=== PATIENT | male | born 1945 | race Caucasian/White ===

== ENCOUNTER 2020-09-26 14:26 | Emergency (ER) | payer MEDICARE ==
[2020-09-26 14:47] VITALS: TEMP 98.3
--- NOTE | 2020-09-26 15:23 | ED ---
General Adult HPI - General Chief complaint: Weakness Stated complaint: Fall Time Seen by Provider: 09/26/20 15:02 Source: patient, family Mode of arrival: wheelchair Limitations: no limitations - History of Present Illness Initial comments: This is a 74-year-old male with a history of diabetes and peripheral neuropathy who presents emergency department for frequent falls over the last couple of weeks. The patient states that he was diagnosed with coated on September 14. The patient was primarily asymptomatic and did not require hospitalization. He states that since that time he is noticed that he's had frequent falls where he feels like his right leg is giving out. He had another episode this morning where he got up out of a chair and temperature to walk however the right leg didn't seem like he wanted to move and he collapsed down onto his right knee. Patient states that he did not lose consciousness and had no lightheadedness or syncope. The patient states that he did not hit his head. He states he was able to get up after the fall however did have some knee pain afterwards. The patient does admit to having diabetes that has been poorly controlled over the last couple of weeks however states that he has got this under control recently. The patient denies any upper extremity weakness. He states that his lower extremities feel back to normal at this time and he has no weakness. He states he does have bilateral total numbness which is consistent with his peripheral neuropathy and unchanged. The patient states that he has no facial droop. No numbness in the face. No difficult or speech or swallowing. The patient denies any chest pain or shortness of breath. No nausea or vomiting. He states that he came in because of the frequent falls and just wanted to get evaluated to make sure that there is not something else going on. Patient denies any other acute complaints currently. - Related Data Home Medications Medication Instructions Recorded Confirmed Gabapentin 300 mg PO DAILY PRN 09/26/20 09/26/20 Allergies Allergy/AdvReac Type Severity Reaction Status Date / Time No Known Allergies Allergy Verified 09/26/20 16:22 Review of Systems ROS Statement: Those systems with pertinent positive or pertinent negative responses have been documented in the HPI. ROS Other: All systems not noted in ROS Statement are negative. Past Medical History Past Medical History: Diabetes Mellitus Additional Past Medical History / Comment(s): neuropathy,glaucoma History of Any Multi-Drug Resistant Organisms: None Reported Past Surgical History: No Surgical Hx Reported Past Psychological History: No Psychological Hx Reported Smoking Status: Former smoker Past Alcohol Use History: None Reported Past Drug Use History: None Reported General Exam - General Exam Comments Initial Comments: Constitutional: Awake alert Appears comfortable Head: Normocephalic atraumatic Eyes: no conjunctival injection No scleral icterus EOMI, pupils are 3 mm and reactive bilaterally, no disconjugate gaze Neck: No JVD Supple, no midline tenderness Heart: Regular rate rhythm normal S1-S2 no murmurs Lungs: Clear to auscultation bilaterally No wheezing No rales Abdomen: Soft nondistended nontender Extremities: Non edematous DP pulses intact Radial pulses intact Neuro: A&Ox3, patient has cranial nerves II through XII that are grossly intact, 5 out of 5 strength in upper and lower extremities bilaterally, no ataxia with finger-nose or heel to trivedi testing. The patient does report tingling to the toes bilaterally however no numbness proximally. The patient has 5 out of 5 strength with plantar flexion and dorsiflexion, 2 out of 4 patellar reflexes however do seem slightly diminished No focal neurologic deficits Psych: Appropriate mood and affect Limitations: no limitations Course Vital Signs 09/26/20 09/26/20 14:42 17:25 Temperature 98.3 F Pulse Rate 91 90 Respiratory 20 18 Rate Blood Pressure 107/75 124/78 O2 Sat by Pulse 99 96 Oximetry EKG Findings - EKG Comments: EKG Findings:: EKG interpreted at 1544 showing normal sinus rhythm with a rate of 96. There is no abnormal ST segment changes or T-wave inversions. The patient does have a right bundle-branch block. QTC is 510. Other intervals appear normal. There is no ectopy. Medical Decision Making - Medical Decision Making This is a 74-year-old male who presents emergency department for a fall today and frequent falls over the last few weeks. Patient was evaluated and had no focal neurologic findings on examination. He otherwise had completely resolved symptoms when he come emergency department. The patient was able to get up and ambulate at bedside without any assistance. Blood work was obtained and unremarkable. He did have a mild elevated potassium however I believe this is from hemolysis. The patient also had a UA performed that was unremarkable. CT of the head did not show any acute abnormalities. X-ray of the knee and chest also did not reveal any acute abdominal disease. Patient felt well wanted to go home. At this time since the patient is ambulatory and without any focal we akness of bleeding go home and follow-up is with his primary doctor. He can return emergency Department if he has worsening or changing symptoms. All questions were answered. - Lab Data Result diagrams: 09/26/20 15:40 09/26/20 15:40 Lab Results 09/26/20 09/26/20 09/26/20 Range/Units 15:40 15:40 15:40 WBC 10.7 H (3.8-10.6) k/uL RBC 5.56 (4.30-5.90) m/uL Hgb 17.1 (13.0-17.5) gm/dL Hct 51.6 (39.0-53.0) % MCV 92.8 (80.0-100.0) fL MCH 30.8 (25.0-35.0) pg MCHC 33.2 (31.0-37.0) g/dL RDW 13.1 (11.5-15.5) % Plt Count 214 (150-450) k/uL MPV 7.5 Neutrophils % 74 % Lymphocytes % 16 % Monocytes % 7 % Eosinophils % 1 % Basophils % 1 % Neutrophils # 7.8 H (1.3-7.7) k/uL Lymphocytes # 1.7 (1.0-4.8) k/uL Monocytes # 0.7 (0-1.0) k/uL Eosinophils # 0.1 (0-0.7) k/uL Basophils # 0.1 (0-0.2) k/uL PT 10.4 (9.0-12.0) sec INR 1.0 (<1.2) APTT 25.3 (22.0-30.0) sec Sodium 135 L (137-145) mmol/L Potassium 5.8 H (3.5-5.1) mmol/L Chloride 106 (98-107) mmol/L Carbon Dioxide 22 (22-30) mmol/L Anion Gap 7 mmol/L BUN 25 H (9-20) mg/dL Creatinine 0.99 (0.66-1.25) mg/dL Est GFR (CKD-EPI)AfAm 87 (>60 ml/min/1.73 sqM) Est GFR (CKD-EPI)NonAf 75 (>60 ml/min/1.73 sqM) Glucose 142 H (74-99) mg/dL Calcium 8.7 (8.4-10.2) mg/dL Magnesium 2.6 H (1.6-2.3) mg/dL Total Bilirubin 1.0 (0.2-1.3) mg/dL AST 53 (17-59) U/L ALT 66 H (4-49) U/L Alkaline Phosphatase 62 (38-126) U/L Total Protein 7.0 (6.3-8.2) g/dL Albumin 3.9 (3.5-5.0) g/dL Urine Color Urine Appearance (Clear) Urine pH (5.0-8.0) Ur Specific [place] (1.001-1.035) Urine Protein (Negative) Urine Glucose (UA) (Negative) Urine Ketones (Negative) Urine Blood (Negative) Urine Nitrite (Negative) Urine Bilirubin (Negative) Urine Urobilinogen (<2.0) mg/dL Ur Leukocyte Esterase (Negative) 09/26/20 Range/Units 15:46 WBC (3.8-10.6) k/uL RBC (4.30-5.90) m/uL Hgb (13.0-17.5) gm/dL Hct (39.0-53.0) % MCV (80.0-100.0) fL MCH (25.0-35.0) pg MCHC (31.0-37.0) g/dL RDW (11.5-15.5) % Plt Count (150-450) k/uL MPV Neutrophils % % Lymphocytes % % Monocytes % % Eosinophils % % Basophils % % Neutrophils # (1.3-7.7) k/uL Lymphocytes # (1.0-4.8) k/uL Monocytes # (0-1.0) k/uL Eosinophils # (0-0.7) k/uL Basophils # (0-0.2) k/uL PT (9.0-12.0) sec INR (<1.2) APTT (22.0-30.0) sec Sodium (137-145) mmol/L Potassium (3.5-5.1) mmol/L Chloride (98-107) mmol/L Carbon Dioxide (22-30) mmol/L Anion Gap mmol/L BUN (9-20) mg/dL Creatinine (0.66-1.25) mg/dL Est GFR (CKD-EPI)AfAm (>60 ml/min/1.73 sqM) Est GFR (CKD-EPI)NonAf (>60 ml/min/1.73 sqM) Glucose (74-99) mg/dL Calcium (8.4-10.2) mg/dL Magnesium (1.6-2.3) mg/dL Total Bilirubin (0.2-1.3) mg/dL AST (17-59) U/L ALT (4-49) U/L Alkaline Phosphatase (38-126) U/L Total Protein (6.3-8.2) g/dL Albumin (3.5-5.0) g/dL Urine Color Yellow Urine Appearance Clear (Clear) Urine pH 5.5 (5.0-8.0) Ur Specific [place] 1.017 (1.001-1.035) Urine Protein Negative (Negative) Urine Glucose (UA) Negative (Negative) Urine Ketones 1+ H (Negative) Urine Blood Negative (Negative) Urine Nitrite Negative (Negative) Urine Bilirubin Negative (Negative) Urine Urobilinogen <2.0 (<2.0) mg/dL Ur Leukocyte Esterase Negative (Negative) Disposition Clinical Impression: Fall Disposition: HOME SELF-CARE Condition: Stable Instructions (If sedation given, give patient instructions): Fall Prevention for Older Adults (ED) Is patient prescribed a controlled substance at d/c from ED?: No Referrals: Glen Russo MD [Primary Care Provider] - 1-2 days
[2020-09-26 15:50] LABS: Basophils # (A) 0.1 k/uL (0-0.2); Basophils % (A) 1 %; Eosinophils # (A) 0.1 k/uL (0-0.7); Eosinophils % (A) 1 %; HCT 51.6 % (39.0-53.0); HGB 17.1 gm/dL (13.0-17.5); Lymphocytes # (A) 1.7 k/uL (1.0-4.8); Lymphocytes % (A) 16 %; MCH 30.8 pg (25.0-35.0); MCHC 33.2 g/dL (31.0-37.0); MCV 92.8 fL (80.0-100.0); Mean Platelet Volume 7.5; Monocytes # (A) 0.7 k/uL (0-1.0); Monocytes % (A) 7 %; Neutrophils # (A) 7.8 k/uL (1.3-7.7); Neutrophils % (A) 74 %; Platelet Count 214 k/uL (150-450); RBC 5.56 m/uL (4.30-5.90); RDW 13.1 % (11.5-15.5); WBC 10.7 k/uL (3.8-10.6)
--- NOTE | 2020-09-26 15:58 | CT ---
EXAMINATION TYPE: CT brain wo con DATE OF EXAM: 09/26/2020 COMPARISON: None HISTORY: c/o loss of balance, multiple recent falls CT DLP: 1147.4 mGycm Automated exposure control for dose reduction was used. There is cerebral cortical atrophy. There is no mass effect nor midline shift. There is no sign of in tracranial hemorrhage. There is some patchy hypodensity in the periventricular white matter. Calvariu m is intact. IMPRESSION: Cerebral atrophy and mild chronic small vessel ischemia. No acute intracranial abnormality.
--- NOTE | 2020-09-26 16:09 | XR ---
EXAMINATION TYPE: XR chest 1V portable DATE OF EXAM: 09/26/2020 COMPARISON: NONE HISTORY: Weakness TECHNIQUE: Single view FINDINGS: Heart and mediastinum are within normal limits. Lungs are clear. Costophrenic angles are fa irly clear. There is slight blunting left costophrenic angle. There are no hilar masses. There is joel e cortical thickening and calcification at the left lung apex involving the anterior lateral left fir st rib. IMPRESSION: There is mild pleural reaction lateral left lung base. Calcification at the left lung ape x probably due to sclerosis and expansile lesion of the left first rib. Rib x-rays would be helpful f or further evaluation if clinically indicated.
[2020-09-26 16:10] LABS: Albumin 3.9 g/dL (3.5-5.0); Calcium 8.7 mg/dL (8.4-10.2); Magnesium 2.6 mg/dL (1.6-2.3); Potassium 5.8 mmol/L (3.5-5.1)
--- NOTE | 2020-09-26 16:11 | XR ---
EXAMINATION TYPE: XR knee 4V RT DATE OF EXAM: 09/26/2020 COMPARISON: NONE HISTORY: Weakness TECHNIQUE: Single view FINDINGS: There is some narrowing of the medial joint space. There is spurring of the medial femoral and tibial condyles. There is degenerative cyst formation in the medial femoral condyle. There is no joint effusion. I see no fracture nor dislocation. 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 No fracture.
[2020-09-26 16:24] LABS: Partial Thromboplastin Time 25.3 sec (22.0-30.0); Prothrombin Time 10.4 sec (9.0-12.0)
[2020-09-26 17:26] VITALS: BP 124/78; PULSE 90; RESP 18
[2020-09-26 17:37] LABS: Appearance,Urine Clear (Clear); Bilirubin,Urine Negative (Negative); Blood,Urine Negative (Negative); Color,Urine Yellow; Glucose,Urine (UA) Negative (Negative); Ketones,Urine 1+ (Negative); Leukocyte Esterase,Urine Negative (Negative); Nitrite,Urine Negative (Negative); PH, Urine 5.5 (5.0-8.0); Protein,Urine Negative (Negative); Specific Gravity,Urine 1.017 (1.001-1.035); Urobilinogen,Urine <2.0 mg/dL (<2.0)
== END 2020-09-26 18:10 | disposition home or self-care (01) ==
LOC: EC 14:26
DX: E87.5 Hyperkalemia (principal); E11.42 Type 2 diabetes mellitus with diabetic polyneuropathy; R29.6 Repeated falls; M25.569 Pain in unspecified knee; Z79.899 Other long term (current) drug therapy; Z87.891 Personal history of nicotine dependence; W19.XXXA Unspecified fall, initial encounter
CPT/HCPCS: 36415; 70450; 71045; 80053; 81003; 83735; 85025; 85610; 85730; 93005; 99285